=== PATIENT | male | born 1945 | race African-American/Black ===

== ENCOUNTER 2016-12-03 10:28 | Outpatient (CLI) | payer MEDICARE, OTHER ==
[2016-12-03 11:52] LABS: Bilirubin Negative (Negative); Blood, Urine Trace (Negative); Clarity Cloudy (Clear); Glucose, Urine (Dipstick) Negative (Negative); Leukocyte Large (Negative); Nitrite Positive (Negative); Protein, Urine (Dipstick) 30 mg/dL (Neg-Trace); Urobilinogen 0.2 mg/dL (0.2-1.0); pH, Urine 5.5 (5.0-9.0)
[2016-12-03 11:54] LABS: Bacteria/HPF 4+ HPF (None Seen); Crystals/HPF 1+ AMORPH URATES HPF (Negative); RBC/HPF 0-3 HPF (0-3); Squamous Epithelial 0-3 HPF (0-3)
== END 2016-12-03 10:29 | disposition home or self-care (01) ==
LOC: NAV LABSP 10:28
PROVIDERS: ATTEND Internal Medicine
DX: R30.9 Painful micturition, unspecified (principal)
CPT/HCPCS: 81001; 87077; 87086; 87186